=== PATIENT | female | born 1975 | race Two or more races ===

== ENCOUNTER 2017-05-18 20:59 | Emergency (ER) | payer SELFPAY ==
[~2017-05-18] VITALS: Ht 162.6 cm; Wt 108.9 kg
[2017-05-18 21:42] VITALS: BP 146/76
[2017-05-19 01:01] LABS: Albumin 3.1 g/dL (3.4-5.0); BUN/Creatinine Ratio 24.3; Calcium 8.4 mg/dL (8.5-10.1)
[2017-05-19 01:03] LABS: Bilirubin, Total 0.3 mg/dL (0.2-1.0); Total Protein 7.1 g/dL (6.4-8.2)
[2017-05-19 01:28] LABS: Potassium 4.3 mmol/L (3.5-5.1)
== END 2017-05-19 01:51 | disposition home or self-care (01) ==
LOC: ER 20:59
DX: M79.605 Pain in left leg (principal); M79.604 Pain in right leg; J45.909 Unspecified asthma, uncomplicated
CPT/HCPCS: 36415; 80053